=== PATIENT | female | born 1995 | race Caucasian/White ===

== ENCOUNTER 2016-11-09 07:36 | Day surgery (SDC) | payer BC ==
[~2016-11-09 07:36] MED LIST: Midazolam 1 MG/ML 2 ML SDV ONE; fentaNYL 100 MCG/2 ML SDV ONE
[2016-11-09] MEDS ORDERED: fentaNYL 100 MCG/2 ML SDV IV ONE ×3 (08:26→15:17)
[2016-11-09] MEDS ORDERED: Midazolam 1 MG/ML 2 ML SDV IV ONE ×3 (08:27→15:17)
[2016-11-09] MEDS ORDERED: Sodium Chloride 0.9% 10 ML Syringe FLUSH PRN (08:30)
[2016-11-09] MEDS ORDERED: Dextrose 5%-0.45% NaCl 1,000 ML IV SCH (08:30)
[2016-11-09 10:33] VITALS: BP 110/59
--- NOTE | 2016-11-09 12:35 | OR ---
DATE: 11/09/2016 PROCEDURE: Esophagogastroduodenoscopy and multiple pinch biopsies. INSTRUMENT USED: GIF-H180 Olympus video panendoscope. PREMEDICATIONS: No oral topical anesthesia used. Fentanyl 100 mcg intravenous, Versed 2 mg intravenous. The procedure was done under pulse oximetry, BP recording, and cardiac cath tech. INDICATION: The patient with persistent abdominal pain, dyspepsia, and bloating, longstanding, unexplained and not responsive to medical measures, on PPI. Esophagogastroduodenoscopy is performed for detection of any active erosive lesions, Heredia esophagus and/or malignancy also under consideration, H. pylori status to be determined, small bowel biopsies to be obtained for celiac disease if indicated, endoscopic hemostasis therapy if needed. DESCRIPTION OF PROCEDURE: The scope was passed with ease. Adequate visualization of the esophagus was made from proximal to distal areas. No upper esophageal lesions identified. No distal esophageal stricture. No uphill or downhill esophageal varices. No Jeny-Landaverde tear. No evidence of erosive esophagitis by [place] criteria. No esophageal polyp or tumor mass identified. Z-line was seen at around 40 cm distal to the oral verge, configuration consistent with grade 1 by ZAP classification. No proximal gastric varices noted. Gastric fundus examination by retroflexion showed no polypoid lesions. No gastric ulcer, malignant mass, or vascular ectasia identified. Duodenal bulb showed no ulcer. Visualized second part of the duodenum was unremarkable. Multiple pinch biopsies 4 in number were taken from different areas of the second part of the duodenum, tissues were also obtained from the duodenal bulb at 9 and 12 o'clock positions and sent for any histopathologic and celiac disease. Multiple pinch biopsies were taken from the gastric antrum and proximal body and sent for PyloriTek test for H. pylori and histopathology. No bleeding was noted from any of the visualized areas at the completion of examination. Photographs were taken of the duodenal bulb, gastric antrum, fundus, and distal esophagus. IMPRESSION: Normal study. The patient tolerated the procedure well. [facility] /[id number]
== END 2016-11-09 10:45 | disposition home or self-care (01) ==
LOC: DL.ENDO 07:36
PROVIDERS: ATTEND Internal Medicine Gastroenterology
DX: R10.13 Epigastric pain (principal); R14.0 Abdominal distension (gaseous); E73.9 Lactose intolerance, unspecified; Z98.890 Other specified postprocedural states
CPT/HCPCS: 43239; 87077; J2250; J3010; J7042

== ENCOUNTER 2016-12-09 15:11 | Emergency (ER) | payer BC ==
[2016-12-09 15:36] VITALS: BP 135/54
--- NOTE | 2016-12-09 16:21 | EDM.PDOC ---
ED HPI GENERAL MEDICAL PROBLEM - General Chief Complaint: Lower Extremity Injury/Pain Stated Complaint: RT ANKLE, [id number] Time Seen by Provider: 12/09/16 16:15 Source of Information: Reports: Patient History Limitations: Reports: No Limitations - History of Present Illness INITIAL COMMENTS - FREE TEXT/NARRATIVE: 21 yo female presents with c/o pain to right foot. States that she was chasing her dog last night and twisted her right foot. Denies falling. States that she woke this morning with pain and swelling with some bruising over the lateral part of her foot. Onset Date: 12/08/16 Duration: Constant Location: Reports: Lower Extremity, Right Quality: Reports: Throbbing Severity: Mild Improves with: Reports: None Worsens with: Reports: Movement Associated Symptoms: Reports: No Other Symptoms Right Feet Pain Score (Numeric/FACES): 4 - Related Data Allergies Allergy/AdvReac Type Severity Reaction Status Date / Time No Known Allergies Allergy Verified 12/09/16 15:36 Home Meds: Home Meds L.acidoph,Paracasei, B.lactis [Probiotic] 1 cap PO DAILY 11/07/16 [History] Lactase [Lactaid] 1 tab PO ASDIRECTED PRN 11/07/16 [History] Multivit-Min/Iron Fum/Folic AC [Nqbab-Skwpugx-Pgbbxgyy Tablet] 1 tab PO DAILY [History] Omeprazole 1 cap PO DAILY 11/07/16 [History] Past Medical History - Past Health History Medical/Surgical History: Denies Medical/Surgical History HEENT History: Reports: None Cardiovascular History: Reports: None Respiratory History: Reports: None Gastrointestinal History: Reports: Cholelithiasis, Other (See Below) Other Gastrointestinal History: LACTOSE INTOLERANCE Genitourinary History: Reports: None CAN RUNNER History: Reports: None Musculoskeletal History: Reports: None Neurological History: Reports: None Psychiatric History: Reports: None Endocrine/Metabolic History: Reports: Obesity/BMI 30+ Hematologic History: Reports: None Immunologic History: Reports: None Oncologic (Cancer) History: Reports: None Dermatologic History: Reports: None - Infectious Disease History Infectious Disease History: Reports: None - Past Surgical History Head Surgeries/Procedures: Reports: None HEENT Surgical History: Reports: Adenoidectomy, Tonsillectomy Cardiovascular Surgical History: Reports: None Respiratory Surgical History: Reports: None GI Surgical History: Reports: None Female Surgical History: Reports: None Endocrine Surgical History: Reports: None Neurological Surgical History: Reports: None Musculoskeletal Surgical History: Reports: Arthroscopic Procedure, Other (See Below) Other Musculoskeletal Surgeries/Procedures:: HX OF FOOT SURGERY D/T INJURY Oncologic Surgical History: Reports: None Dermatological Surgical History: Reports: None Social & Family History - Tobacco Use Smoking Status *Q: Never Smoker Second Hand Smoke Exposure: No - Caffeine Use Caffeine Use: Reports: Tea - Recreational Drug Use Recreational Drug Use: No Drug Use in Last 12 Months: No Review of Systems - Review of Systems Review Of Systems: ROS reveals no pertinent complaints other than HPI. ED EXAM, GENERAL - Physical Exam Exam: See Below Exam Limited By: No Limitations General Appearance: Alert, WD/WN, No Apparent Distress Respiratory/Chest: No Respiratory Distress, Lungs Clear, Normal Breath Sounds, No Accessory Muscle Use, Chest Non-Tender Cardiovascular: Normal Peripheral Pulses, Regular Rate, Rhythm, No Edema, No Gallop, No JVD, No Murmur, No Rub Peripheral Pulses: 4+: Posterior Tibial (L), Posterior Tibial (R), Dorsalis Pedis (L), Dorsalis Pedis (R) Extremities: Normal Inspection, Non-Tender, No Pedal Edema, Normal Capillary Refill, Limited Range of Motion (due to pain) Neurological: Alert, Oriented, Normal Cognition, Normal Gait (with crutches), No Motor/Sensory Deficits Skin Exam: Warm, Dry, Intact, No Rash, Ecchymosis (right lateral foot) Course - Vital Signs Last Recorded V/S: Last Vital Signs Temp 98.2 F 12/09/16 15:32 Pulse 57 L 12/09/16 15:32 Resp 18 12/09/16 15:32 BP 135/54 L 12/09/16 15:32 Pulse Ox 100 12/09/16 15:32 - Re-Assessments/Exams Free Text/Narrative Re-Assessment/Exam: 12/09/16 16:[address] Gongora [facility] orthopedics who states that patient can be placed in a walking boot and follow up in clinic in 2 weeks. Pt states that she has a walking boot at home and will use her own. Departure - Departure Time of Disposition: 16:35 Disposition: Home, Self-Care 01 Condition: Good Clinical Impression: Robertson fracture Qualifiers: Encounter type: initial encounter Fracture type: closed Qualified Code(s): S99.199A - Other physeal fracture of unspecified metatarsal, initial encounter for closed fracture - Discharge Information Instructions: Metatarsal Fracture Forms: ED Department Discharge Additional Instructions: Make sure to put on the boot on as soon as you get home. Call [facility] at for an appt in 2 weeks. You may put weight on the foot however keep it in the boot. Return for any worsening symptoms.
[2016-12-09] MEDS ORDERED: Acetaminophen/oxyCODONE 325-5 MG Tab ONE (16:56)
== END 2016-12-09 17:03 | disposition home or self-care (01) ==
LOC: DL.ED 15:11
DX: S92.354A Nondisplaced fracture of fifth metatarsal bone, right foot, initial encounter for closed fracture (principal); E66.9 Obesity, unspecified; Z98.890 Other specified postprocedural states; Z79.899 Other long term (current) drug therapy; X50.1XXA Overexertion from prolonged static or awkward postures, initial encounter; Y93.9 Activity, unspecified
CPT/HCPCS: 73610-RT; 73630-RT; 99284